=== PATIENT | male | born 2000 | race Caucasian/White ===

== ENCOUNTER 2020-11-02 16:17 | Emergency (ER) | payer BC ==
[~2020-11-02] VITALS: Ht 182.9 cm; Wt 61.2 kg
[2020-11-02] MEDS ORDERED: VALTREX 500 MG500 M1 PO (16:49)
[2020-11-02 18:23] VITALS: BP 122/72
== END 2020-11-02 18:24 | disposition home or self-care (01) ==
LOC: M.ERS 16:17
DX: S61.215A Laceration without foreign body of left ring finger without damage to nail, initial encounter (principal); W25.XXXA Contact with sharp glass, initial encounter; Y93.89 Activity, other specified; Y92.89 Other specified places as the place of occurrence of the external cause; Y99.8 Other external cause status